=== PATIENT | female | born 1980 | race Caucasian/White ===

== ENCOUNTER → 2016-06-06 | Outpatient (CLI) | payer OTHER ==
--- NOTE | 2016-06-07 09:14 | CR ---
EXAMINATION: Cervical and thoracic spine HISTORY: Disorder of bone COMPARISON: None TECHNIQUE: AP and lateral views FINDINGS: The cervical spinal alignment is normal. The vertebral body heights and disc spaces appear well-main tained. There is no fracture or dislocation. Bone mineralization is normal. The prevertebral soft ti ssues are normal. The thoracic spinal alignment is normal. The vertebral body heights and disc spaces appear well-inderjit ntained. No fracture or dislocation. Bone mineralization is normal. Mild marginal osteophytes are no belia. The visualized lungs appear clear. IMPRESSION: 1. Minimal degenerative changes without acute findings.
== END ==
LOC: MW.CHFP 14:28
PROVIDERS: ATTEND Physician Assistant
DX: M89.8X1 Other specified disorders of bone, shoulder (principal); G89.29 Other chronic pain
CPT/HCPCS: 72040; 72040-26; 72070; 72070-26

== ENCOUNTER → 2016-06-08 | Outpatient (CLI) | payer OTHER ==
--- NOTE | 2016-06-08 16:31 | US ---
EXAMINATION: Left breast ultrasound HISTORY: Pain COMPARISON: None TECHNIQUE: Grayscale and color Doppler images obtained. FINDINGS: Grayscale and color Doppler images obtained within the outer left breast. There is no abno rmal mass or fluid collection. No skin thickening or abnormal color Doppler flow. IMPRESSION: No suspicious sonographic abnormality identified within the region of concern. Please fo llow-up clinically.
== END ==
LOC: MW.US 10:56
PROVIDERS: ATTEND Physician Assistant
DX: N64.4 Mastodynia (principal); M89.8X1 Other specified disorders of bone, shoulder
CPT/HCPCS: 76642-LT; 76642-LT-26

== ENCOUNTER → 2016-06-11 | Outpatient (CLI) | payer OTHER ==
--- NOTE | 2016-06-15 16:48 | MR ---
EXAM DATE: 06/11/16 PATIENT'S AGE: 35 Patient: ADRIANNA TSAI Facility: [facility] [place] Site Site : [id number] Study: MRI-Spine Cervical [id number] 2:37:00 PM Ordering Physician: BLU PORTER Final Report: Indication: Neck pain. Shoulder pain. Comparison: None. Technique: Sagittal T1, T2, and STIR sequences. Axial T2/gradient sequences. Findings: Normal vertebral body facet alignment. No fractures. No vertebral body loss of height. No spondylosis. No ligamentous injury. Normal marrow signal. Normal cord signal. No intradural mass or lesion. C2-3: No spinal canal or neural foraminal narrowing. C3-4: No spinal canal or neural foraminal narrowing. C4-5: Disc degeneration with posterior disc bulge. No narrowing of spinal canal. No neural foraminal narrowing. C5-6: Disc degeneration with posterior disc bulge. No narrowing of spinal canal. No neural foraminal narrowing. C6-7: No spinal canal or neural foraminal narrowing. C7-T1: No spinal canal or neural foraminal narrowing. No spinal canal or neural foraminal narrowing in the visualized upper thoracic spine. Impression: 1. Normal alignment. No fractures. No spondylolisthesis. 2. Normal cord signal. 3. Mild disc degeneration with posterior disk bulging at C4-5 and C5-6. Otherwise, no spinal canal or neural foraminal narrowing. Dictated by Kenneth Pinto MD @ Jun 15 2016 2:04PM Signed by: Kenneth Pinto MD @06/15/2016 2:06:20 PM (Electronic Signature) Report Signed by Proxy. [facility] SYSTEM[facility]bar
== END ==
LOC: MW.MRI 09:31
PROVIDERS: ATTEND Physician Assistant
DX: M89.8X1 Other specified disorders of bone, shoulder (principal)
CPT/HCPCS: 72141; 72141-26

== ENCOUNTER 2021-02-01 18:24 | Emergency (ER) | payer OTHER ==
[2021-02-01] MEDS ORDERED: Lidocaine 1% 10 ML MDV INJECT ONE (19:49)
[2021-02-01] MEDS ORDERED: Bupivacaine 0.5% 10 ML SDV INJECT ONE (19:49)
--- NOTE | 2021-02-01 19:55 | EDM.PDOC ---
ED HPI GENERAL MEDICAL PROBLEM - General Chief Complaint: Upper Extremity Injury/Pain Stated Complaint: THUMB INJURY Time Seen by Provider: 02/01/21 19:43 - History of Present Illness INITIAL COMMENTS - FREE TEXT/NARRATIVE: History of present illness: [] Patient evulsed her thumbnail prior to arrival. She had acrylic nails applied today. She has no other injury but avulsed the thumbnail incompletely. It is extremely painful to her. Touching it obviously makes it less worse. There is no other injury and no other evidence of illness. Review of systems: As per history of present illness and below otherwise all systems reviewed and negative. Past medical history: As per history of present illness and as reviewed below otherwise noncontributory. Surgical history: As per history of present illness and as reviewed below otherwise noncontributory. Social history: No reported history of drug or alcohol abuse. Family history: As per history of present illness and as reviewed below otherwise noncontributory. Physical exam: Constitutional - well developed, well-nourished and in no acute distress HEENT - normocephalic, no evidence of trauma - external nose and mouth normal - no mass in neck and no JVD - mucosae moist EYES - full EOM, PERRL, no icterus - no evidence of inflammation, injection, or drainage Respiratory - no respiratory distress, equal bilateral expansion Musculoskeletal no gross deformity of long bones or joints - no tenderness, swelling or edema Neurologic - Alert and oriented times four - CN II-XII grossly intact - motor sensory and coordination symmetrically normal Psychiatric - appropriate mood and affect with normal thought content Hematologic - No petechiae or purpura - mucosa appropriate color and sclera not pale - normal nail bed color and refill Integument -the nail of the right thumb is partially avulsed with only an attachment at the proximal base of the ulnar edge of the nail. No rash or evidence of trauma - normal turgor Diagnostics: [] Therapeutics: [] Impression: [] Plan: [] Definitive disposition and diagnosis as appropriate pending reevaluation and review of above. Right Finger-Thumb Pain Score (Numeric/FACES): 5 - Related Data Allergies Allergy/AdvReac Type Severity Reaction Status Date / Time No Known Allergies Allergy Verified 02/01/21 19:14 Home Meds: Home Meds . [No Known Home Meds] 02/01/21 [History] Past Medical History - Past Health History Medical/Surgical History: Denies Medical/Surgical History Social & Family History - Tobacco Use Tobacco Use Status *Q: Never Tobacco User Second Hand Smoke Exposure: No - Recreational Drug Use Recreational Drug Use: No Review of Systems - Review of Systems Review Of Systems: Comprehensive ROS is negative, except as noted in HPI. ED EXAM, GENERAL - Physical Exam Exam: See Below Free Text/Narrative:: My physical exam is in the HPI ED TRAUMA EXTREMITY PROCEDURES - Laceration/Wound Repair Right Hand Lac/Wound Length In cm: 1 (Nail evulsed at base) Distal NVT: Neuro & Vascular Intact Anesthetic Type: Other (Digital block) Local Anesthesia - Lidocaine (Xylocaine): 1% Plain Local Anesthesia - Bupivicaine (Marcaine): 0.5% Plain Local Anesthetic Volume: 5cc Exploration/Debridement/Repair: Moderate Debridement (Digital block was performed. After adequate time the nail was removed and used as a dressing to keep the eponychium elevated.) Course - Vital Signs Last Recorded V/S: Last Vital Signs Temp 36.9 C 02/01/21 19:11 Pulse 85 02/01/21 19:11 Resp 16 02/01/21 19:11 BP 151/82 H 02/01/21 19:11 Pulse Ox 99 02/01/21 19:11 - Orders/Labs/Meds Meds: Medications Discontinued Medications Generic Name Dose Route Start Last Admin Trade Name Freq PRN Reason Stop Dose Admin Bupivacaine HCl 10 ml 02/01/21 19:49 02/01/21 19:57 Bupivacaine 0.5% 10 Ml Sdv INJECT 02/01/21 19:50 10 ml ONETIME ONE Administration Lidocaine HCl 10 ml 02/01/21 19:49 02/01/21 19:53 Lidocaine 1% 10 Ml Mdv INJECT 02/01/21 19:50 Not Given ONETIME ONE Lidocaine HCl 5 ml 02/01/21 19:52 02/01/21 19:57 Lidocaine 1% 5 Ml Sdv INJECT 02/01/21 19:53 5 ml ONETIME ONE Administration Departure - Departure Time of Disposition: 20:40 Disposition: Home, Self-Care 01 Condition: Good Clinical Impression: Nail avulsion, finger - Discharge Information Instructions: Nail Avulsion Forms: ED Department Discharge Sepsis Event Note (ED) - Evaluation Sepsis Screening Result: No Definite Risk - Focused Exam Vital Signs: Vital Signs Temp Pulse Resp BP Pulse Ox 02/01/21 19:11 36.9 C 85 16 151/82 H 99
== END 2021-02-01 20:48 | disposition home or self-care (01) ==
LOC: MW.ED 18:24
DX: S61.101A Unspecified open wound of right thumb with damage to nail, initial encounter (principal); W22.8XXA Striking against or struck by other objects, initial encounter
CPT/HCPCS: 11730; 99283; J3490